=== PATIENT | male | born 1945 | race Caucasian/White ===

== ENCOUNTER → 2016-09-07 | Outpatient (CLI) | payer OTHER | LOC: PET 13:07 | DX: R91.8 Other nonspecific abnormal finding of lung field (principal); R91.1 Solitary pulmonary nodule ==

== ENCOUNTER → 2017-12-20 | Outpatient (CLI) | payer OTHER | LOC: NUC 08:06 | DX: I48.91 Unspecified atrial fibrillation (principal); I10 Essential (primary) hypertension; Z87.891 Personal history of nicotine dependence ==

== ENCOUNTER → 2019-09-10 | Outpatient (CLI) | payer OTHER ==
[~2019-09-10] MED LIST: CARVEDILOL12.5 MG PO; FAMOTIDINE 20 M20 MG PO; FLOMAX0.4 MG PO; LEVO-T100 MCG PO; LISINOPRIL2.5 MG PO; OMEPRAZOLE 20 M20 M1 PO; XARELTO20 MG PO
== END ==
LOC: SJCVCIMAG 08-08 11:15
PROVIDERS: ATTEND Internal Medicine Cardiovascular Disease
DX: R94.31 Abnormal electrocardiogram [ECG] [EKG] (principal); I44.0 Atrioventricular block, first degree; I42.9 Cardiomyopathy, unspecified; I48.21 Permanent atrial fibrillation; I48.0 Paroxysmal atrial fibrillation; I10 Essential (primary) hypertension; E03.9 Hypothyroidism, unspecified; K21.9 Gastro-esophageal reflux disease without esophagitis; I42.8 Other cardiomyopathies; E55.9 Vitamin D deficiency, unspecified; Z79.899 Other long term (current) drug therapy

== ENCOUNTER → 2019-09-18 | Outpatient (CLI) | payer OTHER | LOC: SJCVCIMAG 08:39 | DX: I42.8 Other cardiomyopathies (principal); I10 Essential (primary) hypertension; I48.0 Paroxysmal atrial fibrillation ==

== ENCOUNTER → 2019-09-26 | Outpatient (CLI) | payer OTHER ==
[~2019-09-26] VITALS: Ht 177.8 cm; Wt 78.0 kg
[2019-09-26 07:20] VITALS: BP 101/62
--- NOTE | 2019-09-26 08:27 | EKG ---
[facility] [place] [address] ELECTROCARDIOGRAM REPORT Name: JENNIFER HERNANDEZ [id number] Admission: 09/26/19 Attend Phys: Dougie Bosch MD Discharge: Date of : 43 Report #: [id number] THIS REPORT FOR: cc: Gagan Becerra MD, Bernard O. MD Lundgren, Craig H. 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: Inocente MONTELONGO : 1945 Requested By: Dougie Bosch Order Number: [id number] MD: David Tompkins Measurements Intervals [place] Rate: 69 P: 54 MO: 247 QRS: 1 QRSD: 99 T: 63 QT: 396 QTc: 425 Interpretive Statements Sinus rhythm Prolonged MO interval Nonspecific T wave abnormality No previous ECG available for comparison Electronically Signed On 09-26-2019 8:26:02 CDT by David Tompkins [email or web address] <ELECTRONICALLY SIGNED> By: David Tompkins MD, [facility] 09/26/19 0826 David Tompkins MD, [facility] /EPI
--- NOTE | 2019-09-26 12:54 | CATHLAB ---
[facility] [place] [address] INVASIVE PROCEDURE REPORT Name: JENNIFER HERNANDEZ Room #: REG DOREEN Rhodes.#: [id number] Admission: 09/26/19 Attend Phys: Dougie Bosch MD Discharge: Date of : 43 Report #: [id number] THIS REPORT FOR: cc: Gagan Becerra MD, Bernard O. MD Park, Jin S. MD ~ APPROVED REPORT Study performed: 09/26/2019 08:01:56 Patient Details Patient Status: Out-Patient Room #: The patient is a 74 year-old male Event Personnel Dougie Bosch Denture Laboratory Technician, Saira Lenz RN RN, Darin Sood RN RN, Maya Dominguez RT(R)() Johnathan Solorzano Sherra RTR Monitor Procedures Performed Art Access - R femoral artery* Left Heart Cath w/or w/o Coronaries [id number] [facility] [address] Initial Mod Sed Same Phys/QHP Gr 042558 77402 Mod Sed Same Phys/QHP Ea 242427 Hemostasis with Manual pressure Indication Dyspnea, CardiomyopathyPositive stress test Risk Factors Hypercholesterolemia, Hypertension Previous Procedures/Diagnoses Previous CHF Procedure Narrative The Right Groin^ was infiltrated with 1% Lidocaine subcutaneous anesthesia. A PINNACLE 4FR Sheath #[id number] sheath was inserted into the RFA^. Coronary angiography was performed using coronary diagnostic catheters. The right coronary system was accessed and visualized with a 3DRC catheter. The left coronary system was accessed and visualized with a JL4 catheter. The left ventricle was accessed and visualized with a PIGTAIL catheter. Left ventriculogram was performed in 30 degree projection. Hemostasis was obtained with manual pressure following sheath removal without any complications. [facility] [address] [place] [address] INVASIVE PROCEDURE REPORT Name: DAVIDJENNIFER ANGELINE Room #: REG CL [facility]#: [id number] Admission: 09/26/19 Attend Phys: Dougie Bosch MD Discharge: Date of : 43 Report #: [id number] The patient tolerated the procedure well and there were no complications associated with the procedure. There was no hematoma. Intraoperative Conscious Sedation Sedation start time: 822 Case end Time: 851 Fentanyl 50 mcg Versed 1 mg Fluoro Time: 3.20 minutes Dose: DAP 4033.00 cGycm2 991 mGy Contrast Type and Amount: Omnipaque 90 ml Coronary Angiography The patient's coronary anatomy is co- dominant. Diagnostic Cath Left Main The left main artery is a large-caliber vessel, patent with no flow-limiting lesions. LAD The LAD is a moderate-sized caliber vessel, traverses the anterior wall and wraps around the apex. There is a mild stenosis in the midsegment, 30%. Diagonal 1 This is a small to moderate size caliber vessel, appears angiographically normal. Circumflex Left circumflex artery supplies 1 OM vessel. OM1 This is a small to moderate size caliber vessel, appears angiographically normal. Right Coronary The RCA is a dominant vessel, appears angiographically normal. R PDA The PDA is a moderate-sized caliber vessel, appears angiographically normal. RPLV The RPL artery is a moderate-sized caliber vessel, appears angiographically normal. Ramus The ramus artery is a moderate-sized caliber vessel, appears angiographically normal. Left Ventriculography The left ventricle is normal in size with decreased contractility. The left ventricular ejection fraction is estimated to be 35%. Hemodynamics The aortic pressure is 99/56 mmHg with a mean of 71 mmHg. The left ventricular pressure is 112/4 mmHg with a mean of mmHg. The left ventricular end diastolic pressure is 15 mmHg. Conclusion [facility] [address] [place] [address] INVASIVE PROCEDURE REPORT Name: JENNIFER HERNANDEZ [id number] Admission: 09/26/19 Attend Phys: Dougie Bosch MD Discharge: Date of : 43 Report #: [id number] 1. Nonischemic cardiomyopathy. 2. 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 3. Recommend guideline directed medical therapy. <ELECTRONICALLY SIGNED> By: Dougie Bosch MD 09/26/19 1252 1252 1252 Dougie Bosch MD /INF
== END | disposition home or self-care (01) ==
LOC: CATH 06:32
DX: R94.39 Abnormal result of other cardiovascular function study (principal); I25.10 Atherosclerotic heart disease of native coronary artery without angina pectoris; I42.9 Cardiomyopathy, unspecified; I11.0 Hypertensive heart disease with heart failure; I50.9 Heart failure, unspecified; E78.00 Pure hypercholesterolemia, unspecified; K21.9 Gastro-esophageal reflux disease without esophagitis; Z98.890 Other specified postprocedural states; Z79.899 Other long term (current) drug therapy

== ENCOUNTER → 2019-10-11 | Outpatient (CLI) | payer OTHER | LOC: SJCVC 11:00 | DX: I42.8 Other cardiomyopathies (principal); I48.0 Paroxysmal atrial fibrillation; I25.10 Atherosclerotic heart disease of native coronary artery without angina pectoris; I10 Essential (primary) hypertension; K21.9 Gastro-esophageal reflux disease without esophagitis; E03.9 Hypothyroidism, unspecified; Z82.49 Family history of ischemic heart disease and other diseases of the circulatory system; Z79.01 Long term (current) use of anticoagulants; Z79.899 Other long term (current) drug therapy ==

== ENCOUNTER → 2019-11-13 | Outpatient (CLI) | payer OTHER ==
[~2019-11-13] MED LIST changes: +CARVEDILOL6.25 M1 PO; +DIPHENHIST25 MG PO; +EFFER-K 10 MEQ10 ME1 PO; +FUROSEMIDE 20 M20 MG PO; +KLOR-CON 10 ER10 MEQ PO; +PROSCAR 5MG TABL5 M1 PO; +SILDENAFIL20 MG PO
== END ==
LOC: SJCVC 14:22
PROVIDERS: ATTEND Internal Medicine Cardiovascular Disease
DX: I48.0 Paroxysmal atrial fibrillation (principal); I42.8 Other cardiomyopathies; I25.10 Atherosclerotic heart disease of native coronary artery without angina pectoris; K21.9 Gastro-esophageal reflux disease without esophagitis; I10 Essential (primary) hypertension; E03.9 Hypothyroidism, unspecified; Z79.899 Other long term (current) drug therapy; Z82.49 Family history of ischemic heart disease and other diseases of the circulatory system

== ENCOUNTER → 2019-12-02 | Outpatient (CLI) | payer OTHER | LOC: LAB 14:18 | PROVIDERS: ATTEND Internal Medicine Cardiovascular Disease | DX: Z01.812 Encounter for preprocedural laboratory examination (principal); Z20.828 Contact with and (suspected) exposure to other viral communicable diseases ==

== ENCOUNTER → 2019-12-02 | Outpatient (CLI) | payer OTHER ==
[2019-12-02 09:50] LABS: HEMATOCRIT 44.4 % (42.0-52.0); HEMOGLOBIN 15.1 gm/dL (14.0-18.0); MCH 34.2 pg (26.0-34.0); MCHC 34.1 g/dL (28.0-37.0); MCV 100.2 fL (80.0-100.0); RBC 4.43 mil/uL (4.50-6.00); RDW 12.6 % (10.5-14.5); WBC 5.2 thou/uL (4.0-11.0)
[2019-12-02 10:04] LABS: ALBUMIN 3.5 g/dL (3.4-5.0); CALCIUM 8.4 mg/dL (8.5-10.1); CREATININE 1.2 mg/dL (0.7-1.3); TOTAL BILIRUBIN 0.5 mg/dL (0.2-1.0); TOTAL PROTEIN 6.3 g/dL (6.4-8.2)
== END ==
LOC: CAT 09:17
PROVIDERS: ATTEND Internal Medicine Cardiovascular Disease
DX: J84.10 Pulmonary fibrosis, unspecified (principal); M41.85 Other forms of scoliosis, thoracolumbar region; I48.91 Unspecified atrial fibrillation

== ENCOUNTER → 2019-12-04 | Outpatient (CLI) | payer OTHER ==
[~2019-12-04] VITALS: Ht 177.8 cm; Wt 74.8 kg
[2019-12-04 07:22] VITALS: BP 92/63
--- NOTE | 2019-12-04 08:40 | TEE ---
[facility] [address] [place] [address] TRANSESOPHAGEAL ECHOCARDIOGRAM Name: JENNIFER HERNANDEZ Room #: REG DOREEN [facility].#: [id number] Admission: 12/04/19 Attend Phys: David Tompkins MD, Discharge: Date of : 43 Report #: [id number] THIS REPORT FOR: cc: Gagan Becerra MD, Bernard O. MD Lundgren, Craig H. MD [facility] ~ APPROVED REPORT Study performed: 12/04/2019 07:42:41 EXAM: Transesophageal Echocardiogram Patient Location: Out-Patient Status: routine BSA: 1.92 HR: 86 bpm BP: 93/61 mmHg Rhythm: Atrial Fibrillation Other Information Study Quality: Good Indications Atrial Fibrillation Pre-ablation. Procedure After obtaining informed consent, patient underwent transesophageal echo in the [employer]. Type of Sedation : Conscious Sedation Sedation was administered by Elsy Hui RN. Sedation was achieved intravenously with: Versed (3.5) Fentanyl (50) Transesophageal probe was inserted and advanced into esophagus without difficulty by David Tompkins MD. Echo enhancement indication: R/O Septal defect. Echo enhancement agent administered: Agitated Saline The MACKENZIE was performed without complications. Throughout the procedure, the blood pressure, pulse oximetry, cardiac rhythm, and rate were monitored. The patient tolerated the procedure without adverse effects. Recovery from conscious sedation was uneventful and vital signs were stable. Left Ventricle [facility] [address] [place] [address] TRANSESOPHAGEAL ECHOCARDIOGRAM Name: JENNIFER HERNANDEZ Room #: REG CL [facility].#: [id number] Admission: 12/04/19 Attend Phys: David Tompkins, Discharge: Date of : 43 Report #: [id number] The left ventricle is normal size. There is global hypokinesis of the left ventricle. There is normal left ventricular wall thickness. Left ventricular systolic function is moderate to severely decreased. LVEF is 30-35%. Right Ventricle The right ventricle is normal size. The right ventricular systolic function is normal. Atria Left atrium is dilated. No thrombus is visualized in the left atrium or appendage. No shunting noted by contrast bubble injection. The right atrium size is normal. Aortic Valve The aortic valve is normal in structure, trileaflet. No aortic regurgitation is present. There is no aortic valvular stenosis. Mitral Valve The mitral valve is normal in structure. Mild mitral regurgitation. No evidence of mitral valve stenosis. Tricuspid Valve The tricuspid valve is normal in structure. Trace tricuspid regurgitation. Pulmonic Valve The pulmonary valve is normal in structure. Trace pulmonic regurgitation. Great Vessels The aortic root is normal in size. IVC is normal in size and collapses >50% with inspiration. Pericardium There is no pericardial effusion. <Conclusion> Left ventricular systolic function is moderate to severely decreased. There is global hypokinesis of the left ventricle. LVEF is 30-35%. Left atrium is dilated. No thrombus is visualized in the left atrium or appendage. No shunting noted by contrast bubble injection. [facility] [address] [place] [address] TRANSESOPHAGEAL ECHOCARDIOGRAM Name: JENNIFER HERNANDEZ MARCUS Room #: REG CL [facility]#: [id number] Admission: 12/04/19 Attend Phys: David Tompkins, Discharge: Date of : 43 Report #: [id number] The aortic valve is normal in structure, trileaflet. No aortic regurgitation or stenosis The mitral valve is normal in structure. Mild mitral regurgitation. There is no pericardial effusion. <ELECTRONICALLY SIGNED> By: David Tompkins MD, [facility] 12/04/19839 9 9 David Tompkins MD, [facility] /INF
== END | disposition home or self-care (01) ==
LOC: CATH 06:30
PROVIDERS: ATTEND Internal Medicine
DX: I48.91 Unspecified atrial fibrillation (principal); I08.1 Rheumatic disorders of both mitral and tricuspid valves; I11.0 Hypertensive heart disease with heart failure; I50.9 Heart failure, unspecified; I42.9 Cardiomyopathy, unspecified; E03.9 Hypothyroidism, unspecified; K21.9 Gastro-esophageal reflux disease without esophagitis; Z98.890 Other specified postprocedural states; Z79.899 Other long term (current) drug therapy; Z79.01 Long term (current) use of anticoagulants; Z87.891 Personal history of nicotine dependence

== ENCOUNTER 2019-12-06 06:21 | Observation (INO) | payer OTHER ==
[~2019-12-06] VITALS: Ht 177.8 cm; Wt 74.8 kg
[2019-12-06] VITALS (12 sets, daily range): BP systolic 91–106; BP diastolic 45–68
[~2019-12-06 06:21] MED LIST changes: -EFFER-K 10 MEQ10 ME1 PO
[2019-12-06 07:49] LABS: ABSOLUTE NEUTROPHILS 3.3 thou/uL (1.4-8.2); BASOPHILS 0.7 % (0.0-2.0); EOSINOPHILS 12.1 % (0.0-3.0); HEMATOCRIT 45.4 % (42.0-52.0); HEMOGLOBIN 15.2 gm/dL (14.0-18.0); LYMPHOCYTES 20.8 % (24.0-44.0); MCH 33.9 pg (26.0-34.0); MCHC 33.4 g/dL (28.0-37.0); MCV 101.6 fL (80.0-100.0); MONOCYTES 9.9 % (1.0-8.0); PLATELET COUNT 194 thou/uL (150-400); POLYS 56.5 % (36.0-66.0); RBC 4.47 mil/uL (4.50-6.00); RDW 12.6 % (10.5-14.5); WBC 5.8 thou/uL (4.0-11.0)
[2019-12-06 07:56] LABS: CALCIUM 8.4 mg/dL (8.5-10.1); CREATININE 1.2 mg/dL (0.7-1.3); POTASSIUM 3.5 mmol/L (3.5-5.1)
[2019-12-06 08:03] LABS: ALBUMIN 3.4 g/dL (3.4-5.0); TOTAL BILIRUBIN 0.6 mg/dL (0.2-1.0); TOTAL PROTEIN 6.5 g/dL (6.4-8.2)
[2019-12-06 08:08] LABS: APTT 27.2 Seconds (24.5-32.8); INR 1.1; PROTIME 11.4 Seconds (9.3-11.4)
[2019-12-06] MEDS ORDERED: EFFER-K 10 MEQ10 ME1 PO (13:50)
--- NOTE | 2019-12-06 14:21 | P ---
[facility] [place] [address] PROCEDURE REPORT Name: JENNIFER HERNANDEZ [facility] [id number] Admission: 12/06/19 Attend Phys: Nathan Candelario MD Discharge: Date of : 43 Report #: [id number] THIS REPORT FOR: cc: Gagan Becerra MD, Bernard O. MD Couchonnal,Nathan Koch MD ~ CC: Gagan Candelario DATE OF SERVICE: 12/06/2019 PREOPERATIVE DIAGNOSES: 1. Atrial fibrillation. 2. Nonischemic cardiomyopathy. PROCEDURES PERFORMED: 1. Atrial fibrillation ablation, CPT code 61317. 2. 3D mapping CPT code 72586. 3. Intracardiac echo, CPT code 45756. 4. Focal ablation, CPT code 73582. HISTORY: The patient is a 74-year-old diagnosed with a nonischemic cardiomyopathy years ago, which resolved. He was then found to be in atrial fibrillation, which he has been treated for first several years and then was noted to have recurrent cardiomyopathy, EF of 30-35%. He has also been experiencing increased atrial fibrillation since coming off of his flecainide therapy. He is therefore here for AFib ablation. ANESTHESIA: The patient underwent general anesthesia with no anesthesia related complications. DESCRIPTION OF PROCEDURE: The patient underwent informed consent. We discussed the details of the procedure including the risks, which include but not limited to bleeding, infection, vascular damage, cardiac perforation, stroke and KS. He understood these risks and is willing to proceed. The patient was brought to EP laboratory in a fasting and sedated state and prepped and draped in a sterile fashion. When the patient was in holding, he was in sinus rhythm, but at the beginning of the procedure, he was noted to be in atrial fibrillation., I obtained access to the right femoral vein x 3, placing an 8, 9 and 7-Indian short sheath in the right femoral vein and a sheath was positioned using the modified Seldinger technique. Next under fluoroscopy, decapolar catheter was placed easily in the coronary sinus and an ICE catheter was placed into the right atrium. Using intracardiac ultrasound, I created a 3D geometry using vidIQund and there was evidence of two left and two right pulmonary veins and this was merged with the patient's cardiac CT scan. Next, [address] [address] PROCEDURE REPORT Name: JENNIFER HERNANDEZ Room #: 210-P [facility] Arthur#: [id number] Admission: 12/06/19 Attend Phys: Nathan Candelario MD Discharge: Date of : 43 Report #: [id number] the patient was systemically heparinized and a transseptal was performed using an SL1 sheath and a [place] needle and this was straightforward. I then exchanged for the cryo sheath and using a [employer] Gill Lasso catheter, I created a detailed 3D voltage map of the left atrium. At baseline, the patient was in AFib with a ventricular cycle length of 645 milliseconds, QRS duration 85 milliseconds, QT interval 390 milliseconds. Next, I started by isolating the left superior pulmonary vein. This vein underwent a 4-minute freeze and the vein isolated within 36 seconds. The left inferior pulmonary vein underwent a 4-minute freeze and remained connected. I then performed a second freeze of 180 seconds' duration and the vein isolated within 42 seconds of this freeze. The right superior pulmonary vein underwent an initial 80 second freeze and the vein isolated within 7 seconds. It came off as the temps were -55 degrees. I therefore performed a second freeze of 110 seconds' duration, but came off early as attempts were not very good. I performed a third freeze of only 50 seconds' duration. Again, the temps were only -31 degrees, and therefore, I performed a fourth freeze of 3 minutes duration with good temps. I then went to the right inferior pulmonary vein and performed a single 4-minute freeze and this vein isolated within 42 seconds. I therefore decided to perform a roofline using the cryoablation balloon. I performed 3 freezes anchored from the left superior pulmonary vein and 2 freezes anchored by the right superior pulmonary vein, each of these freezes was of 3 minutes' duration. Next, the patient was cardioverted to sinus rhythm and voltage map was performed, which showed that we had performed a wide circumferential ablation of the 4 pulmonary veins and the posterior roof region was also isolated. Using intracardiac ultrasound, I verified there was no pericardial effusion. I then gave the patient systemic protamine and once ACT was within acceptable range, catheters and sheaths were pulled and hemostasis was obtained. The patient awoke neurologically and hemodynamically intact. No complications and no significant bleeding. CONCLUSIONS: 1. Successful AFib ablation with isolation of the pulmonary veins. 2. Successful posterior roofline isolation. <ELECTRONICALLY SIGNED> By: Nathan Candelario MD 12/06/19 1421 1115 1252 Nathan Candelario MD /nt
--- NOTE | 2019-12-06 20:21 | NUR ---
PT. ARRIVED AT THE FLOOR CLOSE TO NOON; AOX4; ON BED REST FOR 6H; R. GROIN SIDE C/D/I; EDUCATED ABOUT BED REST UNTIL 1630; [facility]; EDUCATED ABOUT FALL PREVENTIONS; [facility]; EDUCATED ABOUT CALLING IF NOTICED BLEEDING OR SOME SWELLING OVER R. GROIN AREA; [facility]; THROUGH THE AFTERNOON NO HEMATOMA DEVELOPED; FRIAS D/C AT 1645; EDUCATED ABOUT USING URINAL; [facility]; NO ABLE TO AVOID UNTIL SHIFT CHANGED; SCHEDULED FLOMAX DURING THE NIGHT; ABLE TO AMBULATE INDEPENDENTLY; SA ON THE MONITOR; ASSESSMENT CHARGED; FOLLOWING POC; PASSED ON REPORT;
[2019-12-07] VITALS: BP 109/74
[2019-12-07 04:00] VITALS: BP 109/74
--- NOTE | 2019-12-07 04:41 | NUR ---
ASSUMED PT CARE AT 1900, PT IS AWAKE, ALERT AND ORIENTEDX4, ABLE TO VOICE CONCERNS, SA/SR ON THE MONITOR, VSS, ASSESSMENTS CHARTED, PT NOT ABLE TO VOID AFTER SEVERAL TRIAL,BLADDER SCAN DONE WITH [address], DR. RO CALLED, ORDER FOR STRAIGHT CATH OBTAINED, PT STATED THAT HE WANTS TO TRY FOR ANOTHER HR, WILL CHECK BACK, RIGHT GROIN SITE CDI, NO HEMATOMA, RESTING IN BED, NO DISTRESS NOTED, WILL CONTINUE TO MONITOR
[2019-12-07 05:41] VITALS: BP 122/75
[2019-12-07 05:54] VITALS: BP 121/77
--- NOTE | 2019-12-07 07:31 | NUR ---
PT ATTEMPTED TO VOID AROUND 0600 WITH NO SUCCESS, STRAIGHT CATH PROVIDED WITH 510ML OUT, PT GROIN SITE REMAINED CDI, PASSED ON REPORT TO DAY SHIFT NURSE
[2019-12-07 07:34] VITALS: BP 112/76
[2019-12-07 10:09] VITALS: BP 112/76
--- NOTE | 2019-12-07 11:45 | NUR ---
ASSUMED CARE AT CHANGE OF SHIFT. ALERT X4, DENIES PAIN, DENIES SOB, GROIN SIGHT C/D/I. NSR ON TELE. CARDIOLOGY ROUNDED AND RESUMED HOME MEDS. PT HAS HX OF PROSTATE, PER CARDIOLOGY PT OKAY TO DC HOME AND CONTACT UROLOGIST IF CONTINUES TO HAVE DIFFICULTY URINATING. REVIEWED POST CATH SIGHT EDUCATIONS, EDUCATED TO FOLLOW UP WITH CARDIOLOGY APPOINTMENT. REMOVED IV AND TELE. HOME WITH SELF CARE.
== END 2019-12-07 10:50 | disposition home or self-care (01) ==
LOC: CATH 06:21 → 2N 11:57 → CATH 14:18 → 2N 12-07 10:50
PROVIDERS: ADMIT Internal Medicine Cardiovascular Disease; ATTEND Internal Medicine Cardiovascular Disease
DX: I48.91 Unspecified atrial fibrillation (principal); I42.8 Other cardiomyopathies; I11.9 Hypertensive heart disease without heart failure; R33.9 Retention of urine, unspecified
CPT/HCPCS: 62110; 62900; 65020; 65040; 70005

== ENCOUNTER → 2020-03-05 | Outpatient (CLI) | payer OTHER ==
[~2020-03-05] MED LIST changes: +EFFER-K 10 MEQ10 ME1 PO
== END ==
LOC: SJCVC 14:33
PROVIDERS: ATTEND Internal Medicine Cardiovascular Disease
DX: R94.31 Abnormal electrocardiogram [ECG] [EKG] (principal); I42.8 Other cardiomyopathies; I48.0 Paroxysmal atrial fibrillation

== ENCOUNTER → 2020-04-01 | Outpatient (CLI) | payer OTHER | LOC: SJCVCIMAG 07:04 | PROVIDERS: ATTEND Internal Medicine Cardiovascular Disease | DX: R94.31 Abnormal electrocardiogram [ECG] [EKG] (principal); I49.1 Atrial premature depolarization; I42.8 Other cardiomyopathies; I48.0 Paroxysmal atrial fibrillation; I10 Essential (primary) hypertension; R42 Dizziness and giddiness; I25.10 Atherosclerotic heart disease of native coronary artery without angina pectoris; Z98.890 Other specified postprocedural states; Z79.899 Other long term (current) drug therapy; Z86.79 Personal history of other diseases of the circulatory system ==

== ENCOUNTER → 2020-06-03 | Outpatient (CLI) | payer OTHER | LOC: SJCVC 14:26 | PROVIDERS: ATTEND Internal Medicine Cardiovascular Disease | DX: R94.31 Abnormal electrocardiogram [ECG] [EKG] (principal); I42.8 Other cardiomyopathies; I48.0 Paroxysmal atrial fibrillation; K21.9 Gastro-esophageal reflux disease without esophagitis; I25.10 Atherosclerotic heart disease of native coronary artery without angina pectoris; E03.9 Hypothyroidism, unspecified; Z79.899 Other long term (current) drug therapy ==

== ENCOUNTER → 2020-09-30 | Outpatient (CLI) | payer OTHER | LOC: SJCVC 14:26 | PROVIDERS: ATTEND Internal Medicine Cardiovascular Disease | DX: R94.31 Abnormal electrocardiogram [ECG] [EKG] (principal); I44.0 Atrioventricular block, first degree; I42.8 Other cardiomyopathies; I48.0 Paroxysmal atrial fibrillation; I10 Essential (primary) hypertension; R42 Dizziness and giddiness; I25.10 Atherosclerotic heart disease of native coronary artery without angina pectoris; K21.9 Gastro-esophageal reflux disease without esophagitis; E03.9 Hypothyroidism, unspecified; I25.5 Ischemic cardiomyopathy; Z79.899 Other long term (current) drug therapy; Z72.89 Other problems related to lifestyle ==

== ENCOUNTER → 2020-12-01 | Outpatient (CLI) | payer OTHER | LOC: SJCVC 13:36 | PROVIDERS: ATTEND Internal Medicine Cardiovascular Disease | DX: R94.31 Abnormal electrocardiogram [ECG] [EKG] (principal); I48.91 Unspecified atrial fibrillation; I42.8 Other cardiomyopathies; I48.0 Paroxysmal atrial fibrillation; I25.10 Atherosclerotic heart disease of native coronary artery without angina pectoris; K21.9 Gastro-esophageal reflux disease without esophagitis; E03.9 Hypothyroidism, unspecified; E55.9 Vitamin D deficiency, unspecified; Z72.89 Other problems related to lifestyle; Z79.899 Other long term (current) drug therapy ==